=== PATIENT | female | born 1980 | race Caucasian/White ===

== ENCOUNTER 2017-04-08 14:40 | Emergency (ER) | payer OTHER, MEDICAID ==
[~2017-04-08] VITALS: Ht 154.9 cm; Wt 105.0 kg
[~2017-04-08 14:40] MED LIST: IBUP800T23 PO; PERC5TAB12 PO
[2017-04-08 15:39] VITALS: BP 139/88; PULSE 66; RESP 15; TEMP 98.9; O2SAT 98
[2017-04-08] MEDS ORDERED: ORPHENADRINE INJ 60 MG/2 ML AMP IM ONE (15:45)
[2017-04-08] MEDS ORDERED: KETOROLAC TROMETHAMINE 60 MG/2 ML (IM) VIAL IM ONE (15:45)
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
[2017-04-08] MEDS ORDERED: NAPR-239 PO (16:31)
[2017-04-08] MEDS ORDERED: CYCL1TAB29 PO (16:31)
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
== END 2017-04-08 17:23 | disposition home or self-care (01) ==
LOC: NEPD 14:40
DX: S13.9XXA Sprain of joints and ligaments of unspecified parts of neck, initial encounter (principal); S33.5XXA Sprain of ligaments of lumbar spine, initial encounter; V49.9XXA Car occupant (driver) (passenger) injured in unspecified traffic accident, initial encounter; Y92.414 Local residential or business street as the place of occurrence of the external cause
CPT/HCPCS: 72050; 72110; 96372; 99284; J1885; J2360